=== PATIENT | female | born 1935 ===

== ENCOUNTER 2017-12-01 14:20 | Emergency (ER) | payer SELFPAY ==
[2017-12-01 15:14] LABS: BASO % 0.3 % (0.0-2.0); EOS # 1.1 K/uL (0.0-0.7); EOS % 12.3 % (0.0-4.0); LYMPH # 2.8 K/uL (1.0-4.3); LYMPH % 32.1 % (20.0-40.0); MEAN CELL VOLUME 88.3 fL (81.0-99.0); MEAN CORPUSCULAR HEMOGLOBIN 30.2 pg (27.0-31.0); MEAN CORPUSCULAR HGB CONC 34.2 g/dL (33.0-37.0); MEAN PLATELET VOLUME 9.9 fL (7.2-11.7); MONO # 0.5 K/uL (0.0-0.8); MONO % 5.3 % (0.0-10.0); NEUT # 4.3 K/uL (1.8-7.0); RBC 4.63 Mil/uL (3.80-5.20); WHITE BLOOD COUNT 8.6 K/uL (4.8-10.8)
--- NOTE | 2017-12-01 15:33 | C.PDOC ---
History Of Present Illness 82-year-old female, presents to the emergency department with complaints of a small amount of vaginal bleed this morning. Patient states she has a Hx of hypertension, and takes one medication in the morning, but is unaware of name. She denies any nausea/vomiting, chest pain, shortness of breath, abdominal pain , dizziness, or any other associated symptoms. No other complaints at this time. Chief Complaint (Nursing): Female Genitourinary History Per: Patient History/Exam Limitations: no limitations Current Symptoms Are (Timing): Still Present Past Medical History Reviewed: Historical Data, Nursing Documentation, Vital Signs Vital Signs: Last Vital Signs Temp 98.0 F 12/01/17 19:59 Pulse 90 12/01/17 19:59 Resp 16 12/01/17 19:59 BP 112/64 12/01/17 19:59 Pulse Ox 95 12/01/17 19:59 Family History: States: No Known Family Hx - Social History Hx Alcohol Use: No Hx Substance Use: No - Immunization History Hx Tetanus Toxoid Vaccination: No Hx Influenza Vaccination: No Hx Pneumococcal Vaccination: No Review Of Systems Constitutional: Negative for: Fever, Chills Cardiovascular: Negative for: Chest Pain, Palpitations Gastrointestinal: Negative for: Nausea, Vomiting, Abdominal Pain Genitourinary: Positive for: Vaginal Bleeding. Negative for: Pelvic Pain Musculoskeletal: Negative for: Back Pain Skin: Negative for: Rash Neurological: Negative for: Weakness, Numbness, Headache, Dizziness Physical Exam - Physical Exam Appears: Non-toxic, No Acute Distress Skin: Normal Color, Warm, Dry, No Rash Head: Normacephalic Eye(s): bilateral: Normal Inspection, PERRL Nose: Normal Oral Mucosa: Moist Neck: Normal ROM Chest: Symmetrical Cardiovascular: Rhythm Regular, No Murmur Respiratory: Normal Breath Sounds, No Accessory Muscle Use Gastrointestinal/Abdominal: Soft, No Tenderness, No Guarding, No Rebound Extremity: Normal ROM, No Deformity, No Swelling Neurological/Psych: Oriented x3, Normal Speech ED Course And Treatment - Laboratory Results Result Diagrams: 12/01/17 15:07 12/01/17 15:37 ECG: Interpreted By Me, Viewed By Me ECG Rhythm: Sinus Rhythm ECG Interpretation: No Acute Changes Rate From EC O2 Sat by Pulse Oximetry: 97 (RA) Pulse Ox Interpretation: Normal Disposition - Disposition Referrals: [facility] [Outside] [facility] [Outside] [facility] [Outside] Disposition: HOME/ ROUTINE Disposition Time: 19:20 Condition: IMPROVED Additional Instructions: Thank you for letting us take care of you today. The emergency medical care you received today was directed at your acute symptoms. If you were prescribed any medication, please fill it and take as directed. It may take several days for your symptoms to resolve. Return to the Emergency Department if your symptoms worsen, do not improve, or if you have any other problems. Please contact your doctor or call one of the physicians/clinics you have been referred to that are listed on the Patient Visit Information form that is included in your discharge packet. Bring any paperwork you were given at discharge with you along with any medications you are taking to your follow up visit. Our treatment cannot replace ongoing medical care by a primary care provider (PCP) outside of the emergency department. Thank you for allowing the [facility] team to be part of your care today. Follow up with the clinic and the [facility] doctor in 3-4 days for re-evaluation and further management. John por dejarnos atenderlo hoy. La atencin mdica de emergencia que recibi hoy estaba dirigida a theresa sntomas agudos. Si le prescribieron algn medicamento, llnelo y tome segn las indicaciones. Theresa sntomas pueden tardar varios hickman en resolverse. Regrese al Departamento de Emergencia si theresa s ntomas empeoran, no mejoran o si tiene algn otro problema. Comunquese con pedroza mdico o llame a fredy de los mdicos / clnicas a los que parker sido referido que figura en el formulario de Informacin de visita del paciente que se incluye en pedroza paquete de zahra. Traiga todos los documentos que recibi al momento del zahra junto con los medicamentos que est tomando en pedroza visita de seguimiento. Nuestro tratamiento no puede reemplazar la atencin mdica en curso por parte de un proveedor de atencin primaria (PCP) fuera del departamento de emergencias. John por permitir que el equipo de [facility] sea parte de pedroza cuidado hoy. Hill un seguimiento con la clnica y el mdico gineclogo en 3-4 hickman para harvinder nueva evaluacin y harvinder mayor administracin. Prescriptions: cloNIDine [Catapres] 0.1 mg PO DAILY #7 tab Forms: [employer] (Pashto), [employer] (Irish) - Clinical Impression Clinical Impression: Uterine bleeding, Hypertension - Scribe Statement The provider has reviewed the documentation as recorded by the Scribe (Damien Dean) All medical record entries made by the Scribe were at my direction and personally dictated by me. I have reviewed the chart and agree that the record accurately reflects my personal performance of the history, physical exam, medical decision making, and the department course for this patient. I have also personally directed, reviewed, and agree with the discharge instructions and disposition.
[2017-12-01 15:36] LABS: URINE BILIRUBIN NEGATIVE (NEGATIVE); URINE BLOOD 2+ (NEGATIVE); URINE CLARITY Clear (Clear); URINE COLOR Colorless (YELLOW); URINE GLUCOSE (UA) NORMAL (Normal); URINE LEUKOCYTE ESTERASE NEG Leu/uL (Negative); URINE PROTEIN NEGATIVE (NEGATIVE); URINE UROBILINOGEN NORMAL mg/dL (0.2-1.0)
[2017-12-01 15:53] LABS: ALB/GLOB RATIO 1.1 (1.0-2.1); ALBUMIN 4.3 g/dL (3.5-5.0); ALT/SGPT 38 U/L (9-52); AST/SGOT 39 U/L (14-36); BLOOD UREA NITROGEN 21 mg/dL (7-17); CALCIUM 10.1 mg/dl (8.6-10.4); GFR AFRICAN-AMERICAN > 60; GFR NON-AFRICAN AMERICAN > 60
--- NOTE | 2017-12-01 19:18 | US ---
EXAM: US Pelvis Complete, Transabdominal US Pelvis, Transvaginal US Duplex Arterial/Venous of the Pelvis, Complete EXAM DATE/TIME: 12/01/2017 3:01 PM CLINICAL HISTORY: 82 years old, female; Signs and symptoms; Other: Vb; Additional info: Vaginal bleeding TECHNIQUE: Real-time transabdominal and transvaginal pelvic ultrasound (complete) with image documentation. Transvaginal imaging was used for better evaluation of the endometrium and adnexa. Real-time duplex ultrasound scan of the arterial and venous flow of the pelvis with color Doppler flow and spectral waveform analysis. COMPARISON: There are no prior studies for comparison. FINDINGS: Uterus/cervix: Uterus is retroflexed. The uterus measures approximately 5 x 2.4 x 3.8 cm. Endometrium measures approximate 2.6 mm on transvaginal imaging. There is fluid in the endometrial canal.. Multiple small calcifications are seen in the peripheral myometrium on transvaginal imaging. Right ovary: Right ovary could not be identified. Left ovary: Left ovary could not be identified. Free fluid: No free fluid. Bladder: Bladder is partially distended. IMPRESSION: Atrophic uterus with fluid in the endometrial canal; nonvisualization of the ovaries
[2017-12-01 20:01] VITALS: BP 112/64; PULSE 90; RESP 16; TEMP 98
[2017-12-01 22:43] VITALS: O2SAT 97
--- NOTE | 2017-12-02 11:35 | CARD ---
APPROVED REPORT EKG Measurement Heart [id number] <Conclusion> Normal sinus rhythm Nonspecific ST abnormality Abnormal ECG
== END 2017-12-01 19:59 | disposition home or self-care (01) ==
LOC: C.ER 14:20
DX: N93.9 Abnormal uterine and vaginal bleeding, unspecified (principal); I10 Essential (primary) hypertension

== ENCOUNTER 2018-03-07 11:53 | Emergency (ER) | payer SELFPAY ==
[2018-03-07 12:11] VITALS: TEMP 98.6
[2018-03-07] MEDS ORDERED: DiphenhydrAMINE 50 mg/ml Inj IVP STA (12:28)
--- NOTE | 2018-03-07 12:48 | C.PDOC ---
History Of Present Illness 82 y/o female, with PMHx of HTN, presents to ED c/o headache, and dizziness for the last 3 days. Denies fever, or trauma. Pt is a poor historian. Time Seen by Provider: 03/07/18 12:20 Chief Complaint (Nursing): Headache History Per: Patient History/Exam Limitations: no limitations Past Medical History Reviewed: Historical Data, Nursing Documentation, Vital Signs Vital Signs: Last Vital Signs Temp 98.6 F 03/07/18 12:07 Pulse 75 03/07/18 14:05 Resp 16 03/07/18 14:05 BP 181/69 H 03/07/18 14:05 Pulse Ox 95 03/07/18 14:05 - Medical History PMH: HTN Family History: States: Unknown Family Hx - Social History Hx Alcohol Use: No Hx Substance Use: No - Immunization History Hx Tetanus Toxoid Vaccination: No Hx Influenza Vaccination: No Hx Pneumococcal Vaccination: No Review Of Systems Except As Marked, All Systems Reviewed And Found Negative. Constitutional: Negative for: Fever, Chills Neurological: Positive for: Headache, Dizziness. Negative for: Weakness, Numbness Physical Exam - Physical Exam Appears: Non-toxic, No Acute Distress Skin: Normal Color, Warm, Dry Head: Atraumatic, Normacephalic Eye(s): bilateral: Normal Inspection Oral Mucosa: Moist Neck: Normal ROM, Supple Cardiovascular: Rhythm Regular Respiratory: Normal Breath Sounds, No Rales, No Rhonchi, No Wheezing Gastrointestinal/Abdominal: Soft, No Tenderness Extremity: Normal ROM Neurological/Psych: Oriented x3, Normal Speech, Normal Cognition ED Course And Treatment - Laboratory Results Result Diagrams: 03/07/18 13:13 03/07/18 13:13 ECG: Interpreted By Me, Viewed By Me ECG Rhythm: Sinus Rhythm Rate From EC O2 Sat by Pulse Oximetry: 97 Pulse Ox Interpretation: Normal Medical Decision Making Medical Decision Making: ro intracranil metabolci etiology Plan: Head CT Blood work Urinalysis Reglan Tylenol Benadryl labs neg. ct neg. pain improved. pt states feels improved. advise outpt fu and return precautions Disposition - Disposition Referrals: [facility] [Outside] [facility] [Outside] Coleman Mitchell MD [Staff Provider] - Disposition: HOME/ ROUTINE Disposition Time: 02:00 Condition: GOOD Additional Instructions: please follwo up with specialist. return to er with worsening symptoms. please also see clinic and your doctor. discuss all lab results and imaging studies with your doctor. Instructions: Headache, Adult, Dizziness, Nonvertigo, (DC) Forms: [email or web address] (Kyrgyz) Print Language: ITALIAN - Clinical Impression Clinical Impression: Headache - Scribe Statement The provider has reviewed the documentation as recorded by the Scribe KP All medical record entries made by the Scribe were at my direction and personally dictated by me. I have reviewed the chart and agree that the record accurately reflects my personal performance of the history, physical exam, medical decision making, and the department course for this patient. I have also personally directed, reviewed, and agree with the discharge instructions and disposition.
[2018-03-07] MEDS ORDERED: DiphenhydrAMINE 50 mg/ml Inj ONE (12:49)
[2018-03-07 13:22] LABS: BASO % 0.3 % (0.0-2.0); EOS % 11.8 % (0.0-4.0); HEMOGLOBIN 13.4 g/dL (11.0-16.0); LYMPH # 2.2 K/uL (1.0-4.3); LYMPH % 26.1 % (20.0-40.0); MEAN CELL VOLUME 87.4 fL (81.0-99.0); MEAN CORPUSCULAR HEMOGLOBIN 29.8 pg (27.0-31.0); MEAN CORPUSCULAR HGB CONC 34.1 g/dL (33.0-37.0); MEAN PLATELET VOLUME 9.7 fL (7.2-11.7); MONO # 0.4 K/uL (0.0-0.8); MONO % 4.4 % (0.0-10.0); NEUT # 4.9 K/uL (1.8-7.0); NEUT % 57.4 % (50.0-75.0); RBC 4.49 Mil/uL (3.80-5.20); RED CELL DISTRIBUTION WIDTH 13.6 % (11.5-14.5); WHITE BLOOD COUNT 8.5 K/uL (4.8-10.8)
[2018-03-07 13:31] LABS: PROTHROMBIN TIME 10.6 SECONDS (9.7-12.2)
[2018-03-07 13:42] LABS: ALB/GLOB RATIO 1.2 (1.0-2.1); ALBUMIN 4.4 g/dL (3.5-5.0); ALT/SGPT 27 U/L (9-52); AST/SGOT 32 U/L (14-36); BLOOD UREA NITROGEN 13 mg/dL (7-17); CALCIUM 9.9 mg/dl (8.6-10.4); GFR NON-AFRICAN AMERICAN 53
[2018-03-07 14:06] VITALS: BP 181/69; PULSE 75; RESP 16
[2018-03-07 14:19] LABS: URINE BILIRUBIN NEGATIVE (NEGATIVE); URINE BLOOD 2+ (NEGATIVE); URINE CLARITY Clear (Clear); URINE COLOR Straw (YELLOW); URINE GLUCOSE (UA) NORMAL (Normal); URINE LEUKOCYTE ESTERASE NEG Leu/uL (Negative); URINE PROTEIN NEGATIVE (NEGATIVE); URINE UROBILINOGEN NORMAL mg/dL (0.2-1.0)
--- NOTE | 2018-03-07 14:27 | CT ---
Date of service: 03/07/2018 PROCEDURE: CT HEAD WITHOUT CONTRAST. HISTORY: Headache COMPARISON: None available. TECHNIQUE: Axial computed tomography images were obtained through the head/brain without intravenous contrast. Radiation dose: Total exam DLP = 820.89 mGy-cm. This CT exam was performed using one or more of the following dose reduction techniques: Automated exposure control, adjustment of the mA and/or kV according to patient size, and/or use of iterative reconstruction technique. FINDINGS: HEMORRHAGE: No acute parenchymal, subarachnoid or extra-axial hemorrhage. BRAIN: No evidence of large acute infarct. No significant microvascular ischemic disease. No obvious parenchymal nor extra-axial mass or collection identified on this noncontrast study. Mild mild localized bifrontal cortical atrophic changes. Vascular calcifications of both carotid siphons. VENTRICLES: Unremarkable. No hydrocephalus. CALVARIUM: Calvarium intact. PARANASAL SINUSES: There is sclerosis and thickening of the posterolateral wall right maxillary antrum. Minimal mucosal thickening present within the right maxillary antrum as well. MASTOID AIR CELLS: Unremarkable as visualized. No inflammatory changes. OTHER FINDINGS: None. IMPRESSION: No acute intracranial hemorrhage. . Mild localized bifrontal cortical atrophic changes
[2018-03-07 15:27] VITALS: O2SAT 97
== END 2018-03-07 14:47 | disposition home or self-care (01) ==
LOC: C.ER 11:53
DX: R51 Headache (principal)
CPT/HCPCS: 70450; 80053; 81001; 85025; 85610; 85730; 96374; 96375; 99285; J1200; J2765